=== PATIENT | female | born 2000 | race Caucasian/White ===

== ENCOUNTER → 2023-06-29 11:00 | Outpatient (BNVA) | payer OTHER, SELFPAY | PROVIDERS: Visit Provider Nurse Practitioner Women's Health | DX: N97.9 Female infertility, unspecified (principal) | CPT/HCPCS: 83036; 83520; 83525; 84146; 84403; 84443 ==

== ENCOUNTER → 2023-07-13 13:18 | Outpatient (BNVA) | payer OTHER, SELFPAY | PROVIDERS: Visit Provider Nurse Practitioner Women's Health | DX: N93.9 Abnormal uterine and vaginal bleeding, unspecified (principal) | CPT/HCPCS: 76830 ==

== ENCOUNTER → 2023-08-19 08:18 | Outpatient (BNVA) | payer OTHER, SELFPAY | PROVIDERS: Visit Provider Nurse Practitioner Women's Health | DX: Z31.9 Encounter for procreative management, unspecified (principal); E28.2 Polycystic ovarian syndrome; N92.6 Irregular menstruation, unspecified | CPT/HCPCS: 84144 ==

== ENCOUNTER → 2023-09-23 11:31 | Outpatient (BNVA) | payer OTHER, SELFPAY | PROVIDERS: Visit Provider Nurse Practitioner Women's Health | DX: E28.2 Polycystic ovarian syndrome (principal); Z31.9 Encounter for procreative management, unspecified; N92.6 Irregular menstruation, unspecified | CPT/HCPCS: 84144 ==

== ENCOUNTER → 2023-11-09 08:40 | Outpatient (BNVA) | payer OTHER, SELFPAY | PROVIDERS: Visit Provider Nurse Practitioner Women's Health | DX: E28.2 Polycystic ovarian syndrome (principal) | CPT/HCPCS: 84144 ==

== ENCOUNTER → 2023-12-07 08:14 | Outpatient (BNVA) | payer OTHER, SELFPAY | PROVIDERS: Visit Provider Obstetrics & Gynecology | DX: Z31.9 Encounter for procreative management, unspecified (principal) | CPT/HCPCS: 84144 ==

== ENCOUNTER → 2024-01-11 09:07 | Outpatient (BNVA) | payer OTHER, SELFPAY | PROVIDERS: Visit Provider Nurse Practitioner Women's Health | DX: N92.6 Irregular menstruation, unspecified (principal) | CPT/HCPCS: 84702 ==

== ENCOUNTER → 2024-01-25 07:57 | Outpatient (BNVA) | payer OTHER, SELFPAY | PROVIDERS: Visit Provider Nurse Practitioner Women's Health | DX: Z36.87 Encounter for antenatal screening for uncertain dates (principal); O30.001 Twin pregnancy, unspecified number of placenta and unspecified number of amniotic sacs, first trimester; Z3A.01 Less than 8 weeks gestation of pregnancy | CPT/HCPCS: 76817 ==

== ENCOUNTER → 2024-01-26 11:19 | Outpatient (BNVA) | payer OTHER, SELFPAY | PROVIDERS: Visit Provider Nurse Practitioner Women's Health | DX: Z34.90 Encounter for supervision of normal pregnancy, unspecified, unspecified trimester (principal) | CPT/HCPCS: 84315; 86850; 86900 ==

== ENCOUNTER → 2024-02-23 08:58 | Outpatient (BNVA) | payer OTHER, SELFPAY | PROVIDERS: Visit Provider Nurse Practitioner Women's Health | DX: O30.009 Twin pregnancy, unspecified number of placenta and unspecified number of amniotic sacs, unspecified trimester (principal) | CPT/HCPCS: 80307; 84315; 84443; 85025; 86592; 86762; 86803; 86850; 86900; 87086; 87340; 87491; 87591; 87806 ==

== ENCOUNTER → 2024-04-11 10:34 | Outpatient (BNVA) | payer OTHER, SELFPAY | PROVIDERS: Visit Provider Nurse Practitioner Women's Health | DX: Z34.90 Encounter for supervision of normal pregnancy, unspecified, unspecified trimester (principal) | CPT/HCPCS: 82950; 84315 ==

== ENCOUNTER → 2024-05-02 09:23 | Outpatient (BNVA) | payer OTHER, SELFPAY | PROVIDERS: Visit Provider Obstetrics & Gynecology | DX: O30.042 Twin pregnancy, dichorionic/diamniotic, second trimester (principal) | CPT/HCPCS: 76805; 76810 ==

== ENCOUNTER → 2024-05-09 08:29 | Outpatient (BNVA) | payer OTHER, SELFPAY | PROVIDERS: Visit Provider Obstetrics & Gynecology | DX: O30.001 Twin pregnancy, unspecified number of placenta and unspecified number of amniotic sacs, first trimester (principal) | CPT/HCPCS: 84315 ==

== ENCOUNTER → 2024-06-06 11:09 | Outpatient (BNVA) | payer OTHER, SELFPAY | PROVIDERS: Visit Provider Obstetrics & Gynecology | DX: Z36.9 Encounter for antenatal screening, unspecified (principal) | CPT/HCPCS: 76816 ==

== ENCOUNTER → 2024-06-27 07:53 | Outpatient (BNVA) | payer OTHER, SELFPAY | PROVIDERS: Visit Provider Obstetrics & Gynecology | DX: Z34.00 Encounter for supervision of normal first pregnancy, unspecified trimester (principal) | CPT/HCPCS: 76816 ==

== ENCOUNTER 2024-06-27 09:13 | Outpatient (CLI) | payer OTHER, SELFPAY ==
[2024-06-27 09:17] VITALS: BMI 29.7
[2024-06-27] MEDS: betamethasone susp 6 mg/mL 1 mL (per mL) 12 MG IM (09:28)
== END 2024-06-27 09:37 | disposition home or self-care (01) ==
LOC: OPOB 09:13 → OBGYN 09:14
PROVIDERS: Visit Provider Obstetrics & Gynecology
DX: O30.049 Twin pregnancy, dichorionic/diamniotic, unspecified trimester (principal); Z3A.00 Weeks of gestation of pregnancy not specified
CPT/HCPCS: 82950; 84315; 85025; 96372; 99211; J0702

== ENCOUNTER 2024-06-28 09:25 | Outpatient (CLI) | payer OTHER, SELFPAY ==
[2024-06-28 09:25] VITALS: BMI 29.7
[2024-06-28] MEDS: betamethasone susp 6 mg/mL 1 mL (per mL) 12 MG IM (09:42)
== END 2024-06-28 09:45 | disposition home or self-care (01) ==
LOC: OPOB 09:28
PROVIDERS: Visit Provider Obstetrics & Gynecology
DX: O30.049 Twin pregnancy, dichorionic/diamniotic, unspecified trimester (principal); Z3A.00 Weeks of gestation of pregnancy not specified
CPT/HCPCS: 96372; 99211; J0702

== ENCOUNTER → 2024-07-11 08:30 | Outpatient (BNVA) | payer OTHER, SELFPAY | PROVIDERS: Visit Provider Obstetrics & Gynecology | DX: Z34.90 Encounter for supervision of normal pregnancy, unspecified, unspecified trimester (principal) | CPT/HCPCS: 84315 ==

== ENCOUNTER → 2024-07-25 07:58 | Outpatient (BNVA) | payer OTHER, SELFPAY | PROVIDERS: Visit Provider Obstetrics & Gynecology | DX: O30.009 Twin pregnancy, unspecified number of placenta and unspecified number of amniotic sacs, unspecified trimester (principal); Z3A.00 Weeks of gestation of pregnancy not specified; Q62.0 Congenital hydronephrosis | CPT/HCPCS: 76816; 84315 ==

== ENCOUNTER → 2024-08-08 07:54 | Outpatient (BNVA) | payer OTHER, SELFPAY | PROVIDERS: Visit Provider Nurse Practitioner Women's Health | DX: O30.009 Twin pregnancy, unspecified number of placenta and unspecified number of amniotic sacs, unspecified trimester (principal) | CPT/HCPCS: 84315 ==

== ENCOUNTER → 2024-08-09 09:26 | Outpatient (BNVA) | payer OTHER, SELFPAY | PROVIDERS: Visit Provider Obstetrics & Gynecology | DX: O26.893 Other specified pregnancy related conditions, third trimester (principal); Z3A.35 35 weeks gestation of pregnancy | CPT/HCPCS: 76819 ==

== ENCOUNTER → 2024-08-16 08:32 | Outpatient (BNVA) | payer OTHER, SELFPAY | PROVIDERS: Visit Provider Nurse Practitioner Women's Health | DX: O30.043 Twin pregnancy, dichorionic/diamniotic, third trimester (principal) | CPT/HCPCS: 76819 ==

== ENCOUNTER → 2024-08-23 10:24 | Outpatient (BNVA) | payer OTHER, SELFPAY | PROVIDERS: Visit Provider Nurse Practitioner Women's Health | DX: O30.009 Twin pregnancy, unspecified number of placenta and unspecified number of amniotic sacs, unspecified trimester (principal) | CPT/HCPCS: 76816; 76819 ==

== ENCOUNTER 2024-08-23 12:00 | Outpatient (CLI) | payer OTHER, SELFPAY ==
[2024-08-23 12:18] VITALS: BP 108/75; PULSE 92
[2024-08-23 12:38] VITALS: BP 113/82; PULSE 81
[2024-08-23 12:58] VITALS: BP 119/83; PULSE 71
== END 2024-08-23 13:06 | disposition home or self-care (01) ==
LOC: OPOB 12:03 → OBGYN 12:04
PROVIDERS: Visit Provider Obstetrics & Gynecology
DX: O30.049 Twin pregnancy, dichorionic/diamniotic, unspecified trimester (principal); Z3A.00 Weeks of gestation of pregnancy not specified
CPT/HCPCS: 36415; 59025; 80053; 82570; 84156; 84315; 84550; 85025; 87081

== ENCOUNTER 2024-08-25 00:50 | Inpatient (IN) | payer OTHER, SELFPAY ==
[2024-08-24] VITALS (17 sets, daily range): BP systolic 117–144; BP diastolic 84–97; PULSE 65–93; RESP 16; BMI 33.5
[2024-08-24 21:09] LABS: Basophils # 0.1 10^3/uL (0.0-0.1); Basophils % 0.5 %; Eosinophils # 0.4 10^3/uL (0.0-0.8); Eosinophils % 3.8 %; Hematocrit 31.3 % (36-47); Lymphocytes # 2.4 10^3/uL (0.8-4.8); Mean Corpuscular HGB Conc 33.2 g/dL (30-55); Mean Corpuscular Volume 87.2 fl (85-98); Mean Platelet Volume 12.1 fL (7.4-10.4); Monocytes # 1.1 10^3/uL (0.2-0.9); Monocytes % 9.5 %; Neutrophils # 6.99 10^3/uL (1.8-7.7); Neutrophils % 63.6 %; Nucleated Red Blood Cells % 0 %; Platelet Count 218 10^3/cmm (157-399); Red Blood Count 3.59 10^6/uL (3.85-5.65); Red Cell Distribution Width 12.8 % (12.1-15.1); White Blood Count 11.01 10^3/uL (3.29-11.43)
[2024-08-24 21:11] LABS: Bilirubin Urine Negative (Negative); Blood Urine Negative (Negative); Glucose Urine UA Negative (Normal); Ketones Urine Negative (Negative); Leukocyte Esterase Urine Negative (Negative); Nitrate Urine Negative (Negative); Protein Urine 2+ (Negative); Specific Gravity, Urine 1.018 (1.005-1.030); Urine Appearance Clear (CLEAR); Urine Color Yellow (Yellow); Urobilinogen Urine 0.2 mg/dL (Negative); pH Urine 6.5 (5-7)
[2024-08-24 21:13] LABS: Add Urine Microscopic? YES; Bacteria Urine Trace /hpf; Hyaline Casts Urine 0.81 /lpf; RBC Urine 0-2 /hpf (0-2); Squamous Epithelial Cell Urine 0-5 /hpf (0-5)
[2024-08-24 21:25] LABS: Alanine Aminotransferase 9 U/L (0-33); Albumin Level 3.3 g/dL (3.5-5.2); Alkaline Phosphatase 146 U/L (35-105); Anion Gap 16.9 (5-19); Aspartate Amino Transferase 15 U/L (0-32); Blood Urea Nitrogen 12 mg/dL (6-20); Calcium 8.7 mg/dL (8.5-10.5); Carbon Dioxide 19 mmol/L (22-29); Chloride 101 mmol/L (98-107); Glucose 82 mg/dL (65-115); Osmolality Calculated 275 mOsm/kg (285-295); Potassium 3.9 mmol/L (3.5-5.1); Sodium 133 mmol/L (136-145); Total Bilirubin 0.2 mg/dL (0.15-1.2); Total Protein 6.3 g/dL (6.6-8.7); Uric Acid 6.4 mg/dL (2.4-5.7)
[2024-08-24 21:30] LABS: Urine Creatinine 121 mg/dL (28-217)
[2024-08-24 21:31] LABS: UPRO/UCREAT Ratio 0.44 mg/mg CR; Urine Protein Random 53 mg/dL
--- NOTE | 2024-08-24 23:26 | P.HPUD_ITS ---
Labor & Delivery H&P Update Date of Procedure: August 24, 2024 Date H&P Performed: 08/23/24 Changes to previous documentation: 23-year-old female G1, P0 with LMP 12/12/2023 and MACO 09/17/2024 placing her at 36.4 weeks gestation with a dichorionic/diamniotic twin gestation. Patient presented to labor and delivery this afternoon with complaints of elevation of blood pressure at home of 130s over 93. During observation patient's blood pressures were in the range of 116-130/ 80s to 94. Patient denies headaches, blurred vision, or abdominal pain. She also denies any leakage of fluid or vaginal bleeding. Patient does admit to increase in lower extremity swelling over the last couple of days. 08/23/2024 NST?category 1, BPP 8/8 with baby A and baby B. Ultrasound revealed Baby A vertex presentation?ROQUE 3.5 x 2.7 cm with EFW 6 pounds 3 ounces (2811 g) Baby B breech presentation?ROQUE 3.7 x 3.2 cm with EF W 6 pound 6 ounces (2885 g) Today patient's NST?category 1 with contractions every 3 to 7 minutes (mild) Significant lab findings?CBC and CMP both normal Urine protein +2 Protein/creatinine ratio 0.44 today which is doubled from 0.2 from yesterday. I discussed with patient and her significant other the high risk of dodie plasencia and with her blood pressure fluctuating with diastolics greater than 90 and the significance of her renal lab of protein and creatinine doubling. Patient is also jess every 2 to 7 minutes. I discussed the possibility of vaginal delivery but with baby B being breech I encouraged primary section delivery. Patient and significant other verbalizes understanding and agrees with this plan. Operative risk of bleeding, infection, injury to pelvic organs blood vessels and nerves as well as anesthetic risk were all reviewed and patient understands. Consent was signed. Admission Diagnosis: Preop diagnosis: 36.4-week twin gestation (Di/Di) with preeclampsia Primary indication for procedure: 36.4-week twin gestation with preeclampsia Planned procedure: Admit to labor and delivery for primary section delivery of twin gestation. Magnesium sulfate 4 g bolus with 2 g maintenance. Related Problem List Diagnoses (1) 36 weeks gestation of : (2) Malpresentation of fetus, antepartum: (3) Twin : (4) Pre-eclampsia affecting childbirth:
[2024-08-24] MEDS: magnesium sulfate premix 4 GM/100 ML PREMIX IV (23:48)
[2024-08-24] MEDS: magnesium sulfate premix 20 GM/500 ML BAG IV (23:51)
[2024-08-24] MEDS: metoclopramide 5 mg/mL SDV 2 mL 10 MG IVP (23:52)
[2024-08-24] MEDS: dextrose 5%-lactated ringers 1,000 ML 125 ML IV (23:52)
[2024-08-24] MEDS: citric acid-sodium citrate 30 mL UDC PO (23:52)
[2024-08-24] MEDS: famotidine 20 mg/2 mL INJ IVP (23:52)
[2024-08-24] MEDS: ceFAZolin 2,000 mg SDV 2000 MG IVP (23:53)
--- NOTE | 2024-08-24 23:55 | P.ANESASSM_ITS ---
Pre-Anesthetic Assessment Height/Weight: Height 1.63 m Weight 88.451 kg Pulse Resp BP O2 Del Method 93 16 140/93 Room Air 08/24/24 23:46 08/24/24 22:40 08/24/24 23:46 08/24/24 22:41 Preop Diagnosis: 36.4-week twin gestation (Di/Di) with preeclampsia Operation Date: 08/25/24 00:10 Proposed Procedures p Section(Not Applicable) - Tere Fisher, Operation Date: 08/25/24 00:20 Proposed Procedures p Section(Not Applicable) - Tere Fisher, DO Familial anesthetic complications: NOne Was Beta Pete taken within 24 hours: N/A Was Clonidine taken within 24 hours: N/A Last intake: 1849 Junior Delgado Social No alcohol and No tobacco Exam alert, oriented x 3, clear to auscultation bilaterally and regular rate & rhythm Airway Mallampati: Class II Dentition: full Preeclalmpsia with Twins Anesthetic Plan ASA status: 3E Anesthesia: Regional (specify below) Risk of > 500 ml blood loss (7ml/kg in children): Yes, adequate IV access and fluids planned Medications/Allergies Home Medications ?Medication ?Instructions ?Recorded ?Confirmed ?Last Taken ?Type [id number] 1 mg 1 tab PO 1XD 08/24/24 08/24/24 08/23/24 History tablet Allergies Allergy/AdvReac Type Severity Reaction Status Date / Time Sulfa (Sulfonamide Allergy Mild ALGY-Hives Verified 08/23/24 08:53 Antibiotics) Current Medications Generic Name Dose Route Start Last Admin Trade Name Amber PRN Reason Stop Dose Admin Dextrose/Lactated Ringer's 1,000 mls @ 125 mls/hr 08/24/24 23:15 08/24/24 23:52 Dextrose 5%-Lactated Ringers IV 125 mls/hr .Q8H NAYANA Administration Magnesium Sulfate 20 gm in 500 mls @ 50 mls/hr 08/24/24 23:15 08/24/24 23:51 Magnesium Sulfate Premix IV 50 mls/hr .Q10H NAYANA Administration Magnesium Sulfate 4 gm in 100 mls @ 50 mls/hr 08/24/24 23:30 08/24/24 23:48 Magnesium Sulfate Premix IV 08/25/24 01:29 50 mls/hr ONCE ONE Administration PFSH Anesthesia Medical History No pertinent past medical history neghx: htn,dm,thyroid,dvt/pe PCP: Gabriela Ramirez NP Supervision of normal first Surgical History No pertinent past surgical history Family History Denies family history of Colon cancer Ovarian cancer Prostate cancer Diabetes Heart disease Hyperlipidemia Breast cancer Hypertension Uterine cancer Thyroid disease Stroke Social History Smoking and tobacco/nicotine status: never used tobacco/nicotine Female Reproductive History : 1 Data Anesthesia 08/24/24 21:00 08/24/24 21:00 Short CBC 08/24/24 Range/Units 21:00 WBC 11.01 (3.29-11.43) 10^3/uL Hgb 10.40 L (11.27-16.99) g/dL Hct 31.3 L (36-47) % MCV 87.2 (85-98) fl Plt Count 218 (157-399) 10^3/cmm Neut % (Auto) 63.6 % Neut # (Auto) 6.99 (1.8-7.7) 10^3/uL BMP 08/24/24 21:00 Sodium 133 L Potassium 3.9 Chloride 101 Carbon Dioxide 19 L BUN 12 Creatinine 0.6 Glucose 82 Calcium 8.7 Liver Function 08/24/24 Range/Units 21:00 Total Bilirubin 0.2 (0.15-1.2) mg/dL AST 15 (0-32) U/L ALT 9 (0-33) U/L Alkaline Phosphatase 146 H (35-105) U/L Albumin 3.3 L (3.5-5.2) g/dL Urine 08/24/24 Range/Units 21:00 Urine Color Yellow (Yellow) Urine Appearance Clear (CLEAR) Urine pH 6.5 (5-7) Ur Specific [place] 1.018 (1.005-1.030) Urine Protein 2+ A (Negative) Urine Glucose (UA) Negative (Normal) Urine Ketones Negative (Negative) Urine Nitrate Negative (Negative) Urine Bilirubin Negative (Negative) Ur Leukocyte Esterase Negative (Negative) Urine RBC 0-2 (0-2) /hpf Urine WBC 6-10 (0-5) /hpf Blood Bank 08/24/24 22:40 Blood Type B Positive Rho(D) Type Rh positive Antibody Screen Negative
[2024-08-25] VITALS (203 sets, daily range): BP systolic 100–127; BP diastolic 52–83; PULSE 50–88; RESP 16–18; TEMP 35.6–36.1; O2SAT 91–100
--- NOTE | 2024-08-25 01:31 | P.OP_ITS ---
Operative Report Date of procedure: August 25, 2024 Pre-op diagnosis: 36.4-week twin gestation (di/di) Elevated blood pressure Preeclampsia Malpresentation of baby B (breech) Post-op diagnosis: Same Post-op findings: Baby A?viable male vertex presentation wt-5#15 7/9 Baby B?viable male malik breech presentation with nuchal cord x 1 wt-6#5 3/8 Procedure done: Primary low-transverse section Specimens removed/disposition: Placenta to pathology Surgeon: Tere Fisher DO Anesthesia: Spinal Estimated blood loss (mL): 1,000 Urine output (mL): 125 Complications: Difficulty delivering baby B head after delivering from breech presentation. Brief History: 23-year-old female at 36.4 twin gestation admitted to labor and delivery with complaints of elevated blood pressure at home. After observation of blood pressures which were noted to be elevated PIH lab was essentially normal other than protein creatinine ratio of 0.44. Patient was jess every 2 to 7 minutes and EFM x 2 were both category 1. Patient was admitted and started on magnesium sulfate 4 g bolus 2 g maintenance. Patient was counseled on delivery due to preeclampsia with risk and benefits explained. Malpresentation of baby B (breech presentation) was also reviewed. I counseled the patient and significant other on possible difficulties of a vaginal delivery to include head entrapment of baby B and recommended a primary section delivery. Surgical risk of bleeding, infection, injury to pelvic organs blood vessels and nerves were reviewed and patient verbalized understanding and agreed with plan and consents were signed. Procedure: 23-year-old female was prepared for surgery, patient was transported to surgical suite placed in the sitting position and spinal anesthetic placed without difficulty by anesthesia. Patient was then repositioned in the supine position with left lateral tilt. Quinteros catheter was placed in the bladder for drainage during the procedure and the abdomen was prepped and draped in the standard fashion. Timeout was performed with patient verbalizing her name, physician's name and procedure to be done. A Pfannenstiel incision was made with a knife and the incision extended to the fascia. Several areas in the subcu fat were cauterized with the Bovie for hemostatic purposes. The fascia was incised and the incision lateralized. The rectus muscles were dissected off the fascia superiorly and inferiorly. The muscle was then entered in the midline and the peritoneum opened bluntly. A bladder flap was created with Metzenbaums and pickups and displaced with the bladder blade. A low transverse uterine incision was made and extended laterally. The bag of horner were entered with clear fluid noted. Baby A was delivered from a vertex presentation followed by the anterior posterior shoulders and the remainder of the baby's body to follow. The umbilical cord was clamped and cut and handed off to waiting exceptional children teacher. Attention was then turned to baby B the bag of horner broken with clear fluid noted. The button was delivered followed by flexing of the legs for delivery through the incision the baby was then held vertical and several attempts to flex the head for delivery was done but unsuccessful. The head was then delivered after rotation of the body and a nuchal cord released. The umbilical cord was clamped and cut and baby handed off to waiting exceptional children teacher. Arterial and venous blood gases were drawn and handed off. Cord blood was drawn. The placenta was then manually removed and the uterus wiped clean while remaining in the abdomen, with a moist lap sponge. Pitocin IV solution was started in a bolus manner. A large hematoma was noted on the inside right of the uterus. This was evaluated as the uterine incision was closed with 0 Vicryl running interlocking stitch. The area of the hematoma did not extend. This possibly could have represented an area of placental abruption, and there was no active bleeding at the hematoma site. With good hemostasis assured, the rectus muscle and peritoneum were approximated with 2-0 Vicryl. The fascia was closed with 0 Vicryl in a running stitch. The subcu fat approximated with 2-0 Vicryl and the skin closed with 4-0 Vicryl in a subcuticular stitch. The incision was cleansed and a pressure dressing applied. The uterus and vaginal vault were expressed and cleared of clots. The uterus was massaged and noted to be firm. Mother and 's (baby A and baby B) were all in stable and satisfactory condition. Related Problem List Diagnoses (1) Delivery by section: (2) Pre-eclampsia affecting childbirth: (3) 36 weeks gestation of : (4) Malpresentation of fetus, antepartum: (5) Twin :
[2024-08-25 08:00] LABS: Magnesium Level (OB Only) 5.5 mg/dL (5.0-7.5)
[2024-08-25] MEDS: magnesium sulfate premix 20 GM/500 ML BAG IV ×2 (09:43→19:18)
--- NOTE | 2024-08-25 10:54 | P.PN_ITS ---
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 Patient presented to labor and delivery with elevated blood pressure (preeclampsia), and EFM was noted to have uterine contractions every 2 to 7 minutes. Patient is ambulating and voiding as well as tolerating a regular diet. She denies headaches, blurred vision or excessive vaginal bleeding. Patient's blood pressures has normalized, and has required no oral hypertensive medication. Her magnesium sulfate will be discontinued after 24 hours. VSS, afebrile Labor: Amniotic Membrane Status: Intact Monitor Mode: Palpation C ontraction Pattern: Regular Vitals/I&O/Wt Last Vital Signs Temp 97 F L 08/25/24 01:47 Pulse 88 08/25/24 10:14 Resp 18 08/25/24 09:00 BP 123/79 08/25/24 10:13 Pulse Ox 100 08/25/24 10:14 O2 Del Method Room Air 08/25/24 01:47 08/24/24 08/25/24 08/25/24 22:59 06:59 14:59 Intake Total 100 / 100 1293.333 / 1293.333 Output Total 1490 / 1490 92 / 92 Balance -1390 / -1390 1201.333 / 1201.333 Weight last 48 hrs Weight 88.451 kg Physical Exam 2 Back/Pelvis: OTHER: Abdomen?soft, fundus firm. Incision clean dry and intact. Lochia?rubra light Extremities?+1 edema negative Homans' sign. Urinary Catheter Management: Quinteros: Cath Placed During This Visit: yes Reason for Continuing Indwelling Catheter: Accurate Measurement of Urinary Output in Critically Ill Patients Urinary Catheter Date of Insertion: 08/25/24 Urinary Catheter Time of Insertion: 00:15 Data 08/24/24 21:00 08/24/24 21:00 A&P Assessment and plan (1) Delivery by section: 1. S/p primary low-transverse section of twin gestation at 36.4 weeks . 2. section due to malpresentation of baby B (Malik breech) (2) Pre-eclampsia affecting childbirth: (3) 36 weeks gestation of : (4) Malpresentation of fetus, antepartum: (5) Twin : PDMP PDMP Reviewed: Not Reviewed Attestations 2 Medical Necessity Statement*: Patient admitted to labor and delivery for management of labor via primary section with twin gestation at 36.4 weeks, with malpresentation of baby B (malik breech). Preeclampsia management Coding Level of Care Code Acute Code for Chg Fwd Diagnoses Delivery by section Pre-eclampsia affecting childbirth O14.94 36 weeks gestation of Z3A.36 Malpresentation of fetus, antepartum O32.9XX0 Twin gestation in first trimester, unspecified multiple gestation type O30.001 Multiple gestation type: unspecified Trimester: first trimester
--- NOTE | 2024-08-25 13:47 | ANE.PACU2 ---
Inpatient post-anesthesia follow up: Airway intact: Yes Vital signs: Temperature 97 F Pulse Rate 71 Respiratory Rate 18 Blood Pressure 127/76 Pulse Oximetry 98 Oxygen Delivery Me thod Room Air Oxygen Flow Rate Fraction of Inspir ed Oxygen Hydration adequate: Yes Nausea and vomiting: No Pain level: 1 Mental status: Baseline
[2024-08-25 14:05] LABS: Hematocrit 26.1 % (36-47); Mean Corpuscular Hemoglobin 29.3 pg (27-33); Mean Corpuscular Volume 88.8 fl (85-98); Mean Platelet Volume 12.2 fL (7.4-10.4); Platelet Count 201 10^3/cmm (157-399); Red Blood Count 2.94 10^6/uL (3.85-5.65); Red Cell Distribution Width 12.6 % (12.1-15.1); White Blood Count 15.42 10^3/uL (3.29-11.43)
[2024-08-25] MEDS: dextrose 5%-lactated ringers 1,000 ML 75 ML IV (14:23)
[2024-08-25 14:37] LABS: Magnesium Level (OB Only) 6.5 mg/dL (5.0-7.5)
[2024-08-25] MEDS: ibuprofen 800 mg tablet PO ×2 (15:59→22:27)
[2024-08-25] MEDS: ferrous sulfate EC 325 mg Tablet PO (19:19)
[2024-08-25] MEDS: docusate sodium 100 mg Capsule PO (19:19)
[2024-08-25 21:07] LABS: Magnesium Level (OB Only) 6.9 mg/dL (5.0-7.5)
[2024-08-26 00:55] VITALS: BP 116/79; PULSE 70
[2024-08-26 05:17] VITALS: BP 120/80; PULSE 75
[2024-08-26 08:41] VITALS: BP 124/85; PULSE 69
[2024-08-26] MEDS: ibuprofen 800 mg tablet PO ×3 (08:41→20:32)
[2024-08-26] MEDS: PRENATAL VIT NO.130/IRON/FOLIC 1 EACH TABLET PO (08:41)
[2024-08-26] MEDS: ferrous sulfate EC 325 mg Tablet PO ×2 (08:41→20:32)
[2024-08-26] MEDS: docusate sodium 100 mg Capsule PO ×2 (08:41→20:32)
--- NOTE | 2024-08-26 10:15 | P.PN_ITS ---
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 Patient denies headaches, visual changes, shortness of breath or chest pain. She is tolerating a regular diet and voiding, she has been ambulating in the room. Patient has passed flatus but has not had a stool. Postop expectations reviewed in great detail to include no heavy lifting pushing or pulling, no sexual intercourse x 6 weeks. Patient is encouraged to shower daily keeping incision clean and dry. High-fiber diet with fruits and vegetables and increase fluids especially water encouraged. Patient was also encouraged to continue her vitamins with iron for at least the next 3 to 4 months if breast-feeding. Magnesium sulfate was discontinued this morning and patient's blood pressures range have remained in the normal without need of hypertensive medication. Labor: Amniotic Membrane Status: Intact Monitor Mode: Palpation C ontraction Pattern: Regular Vitals/I&O/Wt Last Vital Signs Temp 96.1 F L 08/25/24 16:03 Pulse 69 08/26/24 08:41 Resp 18 08/25/24 15:00 BP 124/85 08/26/24 08:41 Pulse Ox 100 08/25/24 15:58 O2 Del Method Room Air 08/25/24 01:47 08/25/24 08/26/24 08/26/24 22:59 06:59 14:59 Intake Total 479.167 / 2072.500 1268.75 / 3341.250 Output Total 1775 / 2144 1200 / 3344 400 / 400 Balance -1295.833 / -71.500 68.75 / -2.750 -400 / -400 Weight last 48 hrs Weight 88.451 kg Physical Exam 2 Back/Pelvis: OTHER: Abdomen?soft, fundus firm, well below umbilicus. Incision clean dry and intact. Lochia?light rubra. Extremity: NARRATIVE EXTREMITY EXAM: Extremities?+1 edema, negative Homans' sign. Urinary Catheter Management: Quinteros: Cath Placed During This Visit: yes, but has since been removed by the nurse Reason for Continuing Indwelling Catheter: Decision to DC Catheter Urinary Catheter Date of Insertion: 08/25/24 Urinary Catheter Time of Insertion: 00:15 Date Urinary Catheter Removed: 08/26/24 Time Urinary Catheter Discontinued: 03:30 Data 08/25/24 12:04 08/24/24 21:00 A&P Assessment and plan (1) Anemia: Asymptomatic with hemoglobin 8.6/hematocrit 26.1. (2) Delivery by section: (3) Pre-eclampsia affecting childbirth: (4) 36 weeks gestation of : (5) Malpresentation of fetus, antepartum: (6) Twin : PDMP PDMP Reviewed: Not Reviewed Attestations 2 Medical Necessity Statement*: 23-year-old female G1 now P1 admitted to labor and delivery at 36.4 weeks gestation with twin gestation in early labor, elevated blood pressure and uterine contractions every 2 to 7 minutes. Ultrasound had confirmed malpresentation with baby B breech. Primary section was performed for delivery. Patient now receiving postoperative care. Coding Level of Care Code Acute Code for Chg Fwd Diagnoses Anemia D64.9 Delivery by section Pre-eclampsia affecting childbirth O14.94 36 weeks gestation of Z3A.36 Malpresentation of fetus, antepartum O32.9XX0 Twin gestation in first trimester, unspecified multiple gestation type O30.001 Multiple gestation type: unspecified Trimester: first trimester
[2024-08-26 15:00] VITALS: BP 122/80; PULSE 89; RESP 16; TEMP 36.8; O2SAT 98
[2024-08-26 21:32] VITALS: BP 119/82; PULSE 69; TEMP 36.1
[2024-08-27 05:37] VITALS: BP 138/74; PULSE 84; TEMP 35.9
[2024-08-27] MEDS: HYDROcodone-acetaminophen 5-325 mg Tablet PO ×2 (05:48→15:41)
[2024-08-27] MEDS: PRENATAL VIT NO.130/IRON/FOLIC 1 EACH TABLET PO (09:32)
[2024-08-27] MEDS: ibuprofen 800 mg tablet PO ×2 (09:32→15:39)
[2024-08-27] MEDS: docusate sodium 100 mg Capsule PO (09:32)
[2024-08-27] MEDS: ferrous sulfate EC 325 mg Tablet PO (09:32)
--- NOTE | 2024-08-27 11:18 | PM.OBGYDC ---
Discharge Providers MARKET RELATIONSHIP MANAGER Date of Admission: 08/25/24 00:50 Date of Discharge: 08/27/24 Attending Provider at Admission: Tere Fisher DO Attending Provider at Discharge: Tere Fisher DO Primary MARKET RELATIONSHIP MANAGER: Dr. Tunde Reeves Diagnoses at Discharge Discharge Diagnosis (1) Anemia: Details from hospital stay: Asymptomatic anemia hemoglobin 8.6 hematocrit 26.1.. Patient encouraged to continue vitamins with iron. Status: Acute (2) Delivery by section: Status: Acute (3) Pre-eclampsia affecting childbirth: Status: Acute (4) 36 weeks gestation of : Status: Acute (5) Malpresentation of fetus, antepartum: Status: Acute (6) Twin : Status: Acute Qualifiers: Multiple gestation type: unspecified Trimester: first trimester Qualified Code(s): O30.001 - Twin , unspecified number of placenta and unspecified number of amniotic sacs, first trimester Reason for Visit Reason for Visit: Elevated BP & swelling Hospital Course Hospital Course 23-year-old female G1, P1 s/p primary low-transverse section with Di Di twin gestation. Patient presented to labor and delivery with contractions every 2 to 7 minutes and elevated blood pressure. Patient had been returning weekly for nonstress tests on labor and delivery. Lab results reflected an increase in her protein creatinine ratio from 0.2-0.44. This in view of her elevated blood pressures indicated preeclampsia. Serial ultrasounds confirmed malpresentation of baby B (malik breech). Discussion with patient preeclampsia and early labor in addition to malpresentation of baby B admission for delivery. Patient stated vaginal trial had been reviewed in clinic. I discussed possible risk of head entrapment with baby B and the increased risk involved. Patient understood and elected to proceed with primary section. Risk and benefits reviewed. Also discussed preeclampsia and risk of seizure activity. Magnesium sulfate was reviewed with patient and used to decrease risk of seizure activity. Patient required no hypertensive medication. Blood pressure ranges normalized. Patient's postop stay has progressed well and uneventful. Patient is ambulating, tolerating a regular diet and voiding. Patient passed flatus and has had a stool. Patient denies headaches, blurred vision, shortness of breath or chest pain. VSS, afebrile Heart?regular rate and rhythm Lungs?CTA bilateral Abdomen?soft, fundus firm 4 cm below the umbilicus. Incision clean dry and intact. Lochia?light rubra. Extremities?no edema, negative Homans' sign. Information Peripartum Data: Delivery Method: Physical Exam Urinary Catheter Management: [place]: Cath Placed During This Visit: yes, but has since been removed by the nurse Reason for Continuing Indwelling Catheter: Decision to DC Catheter Urinary Catheter Date of Insertion: 08/25/24 Urinary Catheter Time of Insertion: 00:15 Date Urinary Catheter Removed: 08/26/24 Time Urinary Catheter Discontinued: 03:30 History History History 1 Term 0 1 Miscarriages/Ectopic Living Children 2 Discharge Data Studies Completed and Pending Pending at discharge Category Date Time Status High Risk PP Hemorrhage Stat Lab 08/25/24 02:57 Received Pathology: Surgical [PTH] Routine Pth 08/25/24 09:10 Received Laboratory Results WBC 15.42 10^3/uL (3.29-11.43) H 08/25/24 12:04 RBC 2.94 10^6/uL (3.85-5.65) L 08/25/24 12:04 Hgb 8.60 g/dL (11.27-16.99) L 08/25/24 12:04 Hct 26.1 % (36-47) L 08/25/24 12:04 MCV 88.8 fl (85-98) 08/25/24 12:04 MCH 29.3 pg (27-33) 08/25/24 12:04 MCHC 33.0 g/dL (30-55) 08/25/24 12:04 RDW 12.6 % (12.1-15.1) 08/25/24 12:04 Plt Count 201 10^3/cmm (157-399) 08/25/24 12:04 MPV 12.2 fL (7.4-10.4) H 08/25/24 12:04 Neut % (Auto) 63.6 % 08/24/24 21:00 Lymph % (Auto) 22.0 % 08/24/24 21:00 [place] % (Auto) 9.5 % 08/24/24 21:00 Eos % (Auto) 3.8 % 08/24/24 21:00 Baso % (Auto) 0.5 % 08/24/24 21:00 Neut # (Auto) 6.99 10^3/uL (1.8-7.7) 08/24/24 21:00 Lymph # (Auto) 2.4 10^3/uL (0.8-4.8) 08/24/24 21:00 [place] # (Auto) 1.1 10^3/uL (0.2-0.9) H 08/24/24 21:00 Eos # (Auto) 0.4 10^3/uL (0.0-0.8) 08/24/24 21:00 Baso # (Auto) 0.1 10^3/uL (0.0-0.1) 08/24/24 21:00 Nucleated RBC % (auto) 0 % 08/24/24 21:00 Nucleated RBCs # 0.0 /100WBC 08/24/24 21:00 Sodium 133 mmol/L (136-145) L 08/24/24 21:00 Potassium 3.9 mmol/L (3.5-5.1) 08/24/24 21:00 Chloride 101 mmol/L (98-107) 08/24/24 21:00 Carbon Dioxide 19 mmol/L (22-29) L 08/24/24 21:00 Anion Gap 16.9 (5-19) 08/24/24 21:00 BUN 12 mg/dL (6-20) 08/24/24 21:00 Creatinine 0.6 mg/dL (0.5-0.9) 08/24/24 21:00 GFR Calculation 125.0 mL/min (90-130) 08/24/24 21:00 Glucose 82 mg/dL (65-115) 08/24/24 21:00 Calculated Osmolality 275 mOsm/kg (285-295) L 08/24/24 21:00 Uric Acid 6.4 mg/dL (2.4-5.7) H 08/24/24 21:00 Calcium 8.7 mg/dL (8.5-10.5) 08/24/24 21:00 Magnesium 6.9 mg/dL (5.0-7.5) 08/25/24 19:40 Total Bilirubin 0.2 mg/dL (0.15-1.2) 08/24/24 21:00 AST 15 U/L (0-32) 08/24/24 21:00 ALT 9 U/L (0-33) 08/24/24 21:00 Alkaline Phosphatase 146 U/L (35-105) H 08/24/24 21:00 Total Protein 6.3 g/dL (6.6-8.7) L 08/24/24 21:00 Albumin 3.3 g/dL (3.5-5.2) L 08/24/24 21:00 Globulin 3.0 g/dL (1.3-4.6) 08/24/24 21:00 Urine Color Yellow (Yellow) 08/24/24 21:00 Urine Appearance Clear (CLEAR) 08/24/24 21:00 Urine pH 6.5 (5-7) 08/24/24 21:00 Ur Specific [place] 1.018 (1.005-1.030) 08/24/24 21:00 Urine Protein 2+ (Negative) A 08/24/24 21:00 Urine Glucose (UA) Negative (Normal) 08/24/24 21:00 Urine Ketones Negative (Negative) 08/24/24 21:00 Urine Blood Negative (Negative) 08/24/24 21:00 Urine Nitrate Negative (Negative) 08/24/24 21:00 Urine Bilirubin Negative (Negative) 08/24/24 21:00 Urine Urobilinogen 0.2 mg/dL (Negative) 08/24/24 21:00 Ur Leukocyte Esterase Negative (Negative) 08/24/24 21:00 Urine RBC 0-2 /hpf (0-2) 08/24/24 21:00 Urine WBC 6-10 /hpf (0-5) 08/24/24 21:00 Ur Squamous Epith Cells 0-5 /hpf (0-5) 08/24/24 21:00 Amorphous Sediment Not Reportable 08/24/24 21:00 Urine Bacteria Trace /hpf (NONE) 08/24/24 21:00 Hyaline Casts 0.81 /lpf 08/24/24 21:00 U Random Total Protein 53 mg/dL 08/24/24 21:00 Urine Creatinine 121 mg/dL (28-217) 08/24/24 21:00 Protein/Creatinin Ratio 0.44 mg/mg CR 08/24/24 21:00 Blood Type B Positive 08/24/24 22:40 Rho(D) Type Rh positive 08/24/24 22:40 Antibody Screen Negative 08/24/24 22:40 Vitals Last Vital Signs Temp 96.6 F L 08/27/24 05:37 Pulse 84 08/27/24 05:37 Resp 16 08/26/24 15:00 BP 138/74 08/27/24 05:37 Pulse Ox 98 08/26/24 15:00 O2 Del Method Room Air 08/25/24 01:47 Results Labs OB ([facility]): Obstetrics US 08/23/24 Obstetrics US/Biophysical Profile 08/23/24 Blood Type B Positive 08/24/24 Antibody Screen Negative 08/24/24 Hct, (36-47) 26.1 % L 08/25/24 Hgb, (11.27-16.99) 8.60 g/dL L 08/25/24 Rho(D) Type Rh positive 08/24/24 Plt Count, (157-399) 201 10^3/cmm 08/25/24 Hep Bs Antigen, (Nonreactive) Non-reactive 02/23/24 Hepatitis C Antibody, (Nonreactive) Non-reactive 02/23/24 Rubella IgG Antibody, (0.0-10.0) 62.6 IU/mL H 02/23/24 RPR, (Nonreactive) Nonreactive 02/23/24 HIV 1&2 Ab & HIV 1 Ag, (Non-Reactiv) Non-reactive 02/23/24 TSH, (0.27-4.20) 0.14 uIU/mL L 02/23/24 C.trachomatis RNA (TMA), (NOT DETECTED) Not detected 02/23/24 N.gonorrhoeae RNA (TMA), (NOT DETECTED) Not detected 02/23/24 T. vaginalis Amp RNA, (NOT DETECTED) Not detected 02/23/24 Chlamydia/GC Comment See note 02/23/24 Glucose 1 Hr 50 gm, (85-140) 100 mg/dL 06/27/24 Hemoglobin A1c, (4.0-6.0) 4.4 % 06/29/23 Uric Acid, (2.4-5.7) 6.4 mg/dL H 08/24/24 Progesterone 8.33 ng/mL 12/07/23 Ser , Semi-Qnt 502.40 mIU/mL 01/11/24 Urine Opiates Screen, (Negative) Negative ng/mL 02/23/24 Ur Barbiturates Screen, (Negative) Negative ng/mL 02/23/24 Ur Phencyclidine Scrn, (Negative) Negative ng/mL 02/23/24 Ur Amphetamines Screen, (Negative) Negative ng/mL 02/23/24 U Benzodiazepines Scrn, (Negative) Negative ng/mL 02/23/24 Urine Cocaine Screen, (Negative) Negative ng/mL 02/23/24 U Marijuana (THC) Screen, (Negative) Negative ng/mL 02/23/24 Micro Urine Specimen 02/23/24 Prolactin, (4.8-23.3) 16.88 ng/mL 06/29/23 Discharge Plan Discharge Patient Disposition: Home Condition: Stable Prescriptions: No Action 1 mg Tablet 1 tab PO 1XD Discharge Orders: Discharge Order (Routine); Ordered 08/27/24 Ordered By: Tere Fisher Discharge Diet: Regular Discharge Activity: Increase activity as tolerated Patient Instructions: Depression (DC), Opioid Safety (DC), Preeclampsia and Eclampsia After Delivery (GEN), Hemorrhage (DC), OB [facility], OB Discharge Report, OB Food/Drug Interaction Guide, Opioid Safety, OB Home Care, Abnormal Bleeding Activity Restrictions/Additional Instructions: No heavy lifting pushing or pulling. No sexual intercourse x 6 weeks. Patient to shower daily keeping incision clean and dry. Patient to return to hospital if severe headaches blurred vision chest pain or shortness of breath occurs or excessive vaginal bleeding. Assessment: 1. S/p primary low-transverse section of twin gestation at 36.4 weeks gestation. 2. Preeclampsia?resolved 3. Malpresentation (malik breech) baby B 4. Asymptomatic anemia 5. History of PCOS Plan of Treatment: DC to home. Patient to follow-up in the women's clinic for postop evaluation 2 weeks. Discharge Attestations MARKET RELATIONSHIP MANAGER Time Spent in Discharge Care*: less than 30 min Coding Level of Care Code Acute Code for Chg Fwd Diagnoses Anemia D64.9 Delivery by section Pre-eclampsia affecting childbirth O14.94 36 weeks gestation of Z3A.36 Malpresentation of fetus, antepartum O32.9XX0 Twin gestation in first trimester, unspecified multiple gestation type O30.001 Multiple gestation type: unspecified Trimester: first trimester
[2024-08-27 15:44] VITALS: BP 135/89; PULSE 82; O2SAT 100
[2024-08-27 16:00] VITALS: BP 135/89; PULSE 82; RESP 16; TEMP 36.5; O2SAT 100
[2024-08-28 03:00] LABS: High Risk PP Hemorrhage BBK Notified
== END 2024-08-27 16:45 | disposition home or self-care (01) | DRG 787 ==
LOC: OPOB 00:50 → OBGYN 00:50
PROVIDERS: Admitting Provider Obstetrics & Gynecology; Visit Provider Obstetrics & Gynecology
PROC: 10D00Z1 Extraction of Products of Conception, Low, Open Approach (ICD-10-PCS; CPT 59514; principal; 2024-08-25)
DX: O60.14X2 Preterm labor third trimester with preterm delivery third trimester, fetus 2 (principal); O71.7 Obstetric hematoma of pelvis; O60.14X1 Preterm labor third trimester with preterm delivery third trimester, fetus 1; O14.94 Unspecified pre-eclampsia, complicating childbirth; O32.1XX2 Maternal care for breech presentation, fetus 2; O69.81X2 Labor and delivery complicated by cord around neck, without compression, fetus 2; O30.043 Twin pregnancy, dichorionic/diamniotic, third trimester; Z3A.36 36 weeks gestation of pregnancy; Z37.2 Twins, both liveborn; O90.81 Anemia of the puerperium; D64.9 Anemia, unspecified
CPT/HCPCS: 36415; 51702; 59025; 59409; 80053; 81001; 82570; 83735; 84156; 84550; 85025; 85027; 86850; 86900; 88307; 99211; J0690; J1885; J2274; J2405; J2765; J3010; J3475; J3490; J7030; J7121; J9999